=== PATIENT | female | born 1970 | race Two or more races ===

== ENCOUNTER 2018-07-08 12:54 | Emergency (ER) | payer MEDICAID ==
[~2018-07-08] VITALS: Ht 152.4 cm; Wt 63.5 kg
--- NOTE | 2018-07-08 13:38 | Emergency Room Report ---
History of Present Illness General Chief Complaint: Headache Source: Patient Present Illness HPI 48-year-old female presents to the emergency department complaining of 9 out of 10 in severity tenderness to a palpable lump posterior scalp progressive x 1 month, nasal congestion, and pressure in the ears Left> right. denies fevers, chills, N,V, or dizziness. pt. denies hx of migraines. pt. denies paresthesias, weakness in the extremities, difficulty with speech or ability to walk, talk or swallow. patient denies neck pain/stiffness. Aggravating or relieving factors Allergies: Coded Allergies: No Known Allergies (Unverified , 07/08/18) Patient History Past Medical History: see triage record Past Surgical History: none Pertinent Family History: none Reviewed Nursing Documentation: PMH: Agreed; PSxH: Agreed Nursing Documentation-PMH Past Medical History: No Stated History Review of Systems All Other Systems: negative except mentioned in HPI Physical Exam Vital Signs Date Time Temp Pulse Resp B/P (MAP) Pulse Ox O2 Delivery O2 Flow Rate FiO2 07/08/18 13:06 98.1 68 16 122/56 98 Room Air Medical Decision Making PA Attestation Dr. Mendez is my supervising physician whom pt. management has been discussed with. Diagnostic Impression: Primary Impression: Sebaceous cyst Additional Impressions: Inflamed sebaceous cyst Head ache Qualified Codes: R51 - Headache Sinus congestion Last Vital Signs Date Time Temp Pulse Resp B/P (MAP) Pulse Ox O2 Delivery O2 Flow Rate FiO2 07/08/18 13:06 98.1 68 16 122/56 98 Room Air Disposition: HOME, SELF-CARE Condition: Stable Patient Instructions: Cystoscopy, Care After, General Headache Without Cause, [id number] Additional Instructions: Take medications as directed. Follow up with a Primary Care Provider in 3-5 days, even if your symptoms have resolved. Will Require same-day outpatient surgery for removal. This is done at an outpatient clinic and is not an emergent procedure. Please follow up with a primary care outpatient clinic for definitive treatment of your symptoms. --Please review list of primary care clinics, if you do not already have a primary care provider Return sooner to ED if new symptoms occur, or current symptoms become worse. - Please note that this Emergency Department Report was dictated using [employer] implementation analyst technology software, occasionally this can lead to erroneous entry secondary to interpretation by the dictation equipment. Morena Cantu Jul 08, 2018 13:38
[2018-07-08] MEDS ORDERED: CEPHALEXIN500 MG ORAL (13:40)
[2018-07-08] MEDS ORDERED: MUPIROCIN22 GM TOPIC (13:40)
[2018-07-08] MEDS ORDERED: EXCEDRIN MIGRA1 EACH PO (13:40)
[2018-07-08] MEDS ORDERED: ZYRTEC-D TABLE1 EACH ORAL (13:40)
[2018-07-08 15:03] VITALS: BP 122/56
[2018-07-08 15:04] VITALS: BP 122/56
== END 2018-07-08 14:20 | disposition home or self-care (01) ==
LOC: EMR 13:35
DX: L72.3 Sebaceous cyst (principal); R51 Headache; R09.81 Nasal congestion
CPT/HCPCS: 99283

== ENCOUNTER 2018-07-15 23:36 | Emergency (ER) | payer MEDICAID ==
[~2018-07-15] VITALS: Ht 157.5 cm; Wt 68.0 kg
[~2018-07-15 23:36] MED LIST: CEPHALEXIN500 MG ORAL; EXCEDRIN MIGRA1 EACH PO; MUPIROCIN22 GM TOPIC; ZYRTEC-D TABLE1 EACH ORAL
[2018-07-15] MEDS ORDERED: NKM (23:47)
--- NOTE | 2018-07-15 23:55 | NUR ---
ED Nurse Note: Patient presents with complaints of abdominal pain 10/10.
--- NOTE | 2018-07-15 23:56 | Emergency Room Report ---
History of Present Illness General Chief Complaint: Abdominal Pain Source: Patient Present Illness HPI This is a 48-year-old female with no significant past medical history. She presents with chief complaint abdominal pain with nausea vomiting diarrhea. She has more diarrhea than vomiting. Pain is mostly epigastric and right upper quadrant area. Radiating to the right lower quadrant. Vomiting is nonbloody nonbilious. Diarrhea is watery. Anus 9 out of 10. Nothing made it better. Palpation made it worse. Eating makes it worse. Onset today. Allergies: Coded Allergies: No Known Allergies (Unverified , 07/08/18) Patient History Past Medical History: see triage record, old chart reviewed Past Surgical History: other Pertinent Family History: none Social History: Denies: smoking Last Menstrual Period: n/a Now: No Immunizations: other Reviewed Nursing Documentation: PMH: Agreed; PSxH: Agreed Nursing Documentation-PMH Past Medical History: No Stated History Review of Systems Eye: Denies: eye pain, blurred vision ENT: Denies: ear pain, nose congestion, throat swelling Respiratory: Denies: cough, shortness of breath Cardiovascular: Denies: chest pain, palpitations Gastrointestinal: Reports: abdominal pain, diarrhea, nausea, vomiting Musculoskeletal: Denies: back pain, joint pain Skin: Denies: rash Neurological: Denies: headache, numbness Endocrine: Denies: increased thirst, increased urine Hematologic/Lymphatic: Denies: easy bruising All Other Systems: negative except mentioned in HPI Physical Exam Vital Signs Date Time Temp Pulse Resp B/P (MAP) Pulse Ox O2 Delivery O2 Flow Rate FiO2 07/15/18 23:43 97.9 77 18 122/75 99 Room Air vitals normal Sp02 EP Interpretation: reviewed, normal General Appearance: well appearing, no apparent distress, alert Head: normocephalic, atraumatic Eyes: bilateral eye PERRL, bilateral eye EOMI ENT: hearing grossly normal, normal pharynx Neck: full range of motion, supple, no meningismus Respiratory: chest non-tender, lungs clear, normal breath sounds Cardiovascular #1: regular rate, rhythm, no murmur Gastrointestinal: normal bowel sounds, no mass, no organomegaly, no bruit, non- distended, tenderness - Right upper quadrant Musculoskeletal: back normal, gait/station normal, normal range of motion Psychiatric: mood/affect normal Skin: warm/dry Medical Decision Making Diagnostic Impression: Primary Impression: Cholelithiases Qualified Codes: K80.20 - Calculus of gallbladder without cholecystitis without obstruction ER Course Patient with abdominal pain with gallstone on the CT scan. Pain is controlled now. Liver enzyme and bilirubin normal. We'll discharge home. Lab Results Impression labs unremarkable CT/MRI/US Diagnostic Results CT/MRI/US Diagnostic Results : Imaging Test Ordered: CT abdomen and pelvis Impression Read by radiologist. Gallstones. One of the stone is in the gallbladder neck. Last Vital Signs Date Time Temp Pulse Resp B/P (MAP) Pulse Ox O2 Delivery O2 Flow Rate FiO2 07/15/18 23:43 97.9 77 18 122/75 99 Room Air Status: improved Disposition: HOME, SELF-CARE Condition: Stable Scripts Ibuprofen* (MOTRIN*) 600 Mg Tablet 600 MG ORAL THREE TIMES A DAY, #30 TAB 0 Refills Prov: David Sheffield MD 07/16/18 Hydrocodone/Acetaminophen 5-325* (HYDROCODONE/ACETAMINOPHEN 5-325*) 1 Each Tablet 1 TAB ORAL Q6H PRN for For Pain, #20 TAB 0 Refills Prov: David Sheffield MD 07/16/18 Additional Instructions: Follow-up with your doctor within a week. You will need a referral to see a surgeon. Return if worse. David Sheffield MD Jul 15, 2018 23:56
[2018-07-16] MEDS ORDERED: Morphine Sulfate 4mg/ml Inj (IV USE ONLY) IVP ONE
[2018-07-16 00:11] VITALS: BP 112/67
[2018-07-16 00:17] LABS: APPEARANCE,URINE CLEAR; BILIRUBIN, URINE NEGATIVE (NEGATIVE); COLOR,URINE PALE YELLOW; GLUCOSE, URINE (UA) NEGATIVE (NEGATIVE); KETONES,URINE NEGATIVE (NEGATIVE); LEUKOCYTE ESTERASE ,URINE NEGATIVE (NEGATIVE); NITRITE,URINE NEGATIVE (NEGATIVE); PH,URINE 5 (4.5-8.0); PROTEIN,URINE NEGATIVE (NEGATIVE); UROBILINOGEN,URINE NORMAL MG/DL (0.0-1.0)
[2018-07-16 00:25] LABS: BASOPHILS % (AUTO) 0.8 % (0.0-2.0); EOSINOPHILS % (AUTO) 1.1 % (0.0-3.0); HEMATOCRIT 36.6 % (37.0-47.0); HEMOGLOBIN 12.6 G/DL (12.0-16.0); LYMPHOCYTES % (AUTO) 25.2 % (20.0-45.0); MEAN CORPUSCULAR VOLUME 94 FL (80-99); MONOCYTES % (AUTO) 4.9 % (1.0-10.0); NEUTROPHILS % (AUTO) 67.9 % (45.0-75.0); PLATELET COUNT 275 K/UL (150-450); RED CELL DISTRIBUTION WIDTH 11.8 % (11.6-14.8); WHITE BLOOD COUNT 12.6 K/UL (4.8-10.8)
[2018-07-16 00:31] LABS: ANION GAP 6 mmol/L (5-15); BLOOD UREA NITROGEN 16 mg/dL (7-18); CARBON DIOXIDE 28 MMOL/L (21-32); CHLORIDE 100 MMOL/L (98-107); CREATININE 0.7 MG/DL (0.55-1.30); POTASSIUM 3.5 MMOL/L (3.5-5.1); SODIUM 134 MMOL/L (136-145)
[2018-07-16 00:35] LABS: ALANINE AMINOTRANSFERASE 37 U/L (12-78); ALBUMIN 3.9 G/DL (3.4-5.0); ALBUMIN/GLOBULIN RATIO 0.9 (1.0-2.7); ALKALINE PHOSPHATASE 119 U/L (46-116); ASPARTATE AMINO TRANSFERASE 25 U/L (15-37); BILIRUBIN,TOTAL 0.3 MG/DL (0.2-1.0)
--- NOTE | 2018-07-16 00:53 | NUR ---
ED Nurse Note: Patient tolerated PO pain medication well.
[2018-07-16] MEDS ORDERED: IBUPROFEN600 MG ORAL (01:37)
[2018-07-16] MEDS ORDERED: HYDROCODON-ACE1 EA15 ORAL (01:37)
--- NOTE | 2018-07-16 01:53 | NUR ---
ED Nurse Note: Patietn discharrged in stable condition, patient verbalized understanding of discharge instructions patient departed with family and left with all belongings
[2018-07-16 01:56] VITALS: BP 110/61
--- NOTE | 2018-07-16 10:15 | Diagnostic Imaging Report ---
Indication: Abdominal pain for 3 days Technique: Spiral acquisitions obtained through the abdomen and pelvis. No oral contrast utilized, per emergency room physician request No IV contrast utilized, per referring physician request.. Multiplanar reconstructions were generated. Total dose length product 684.05 mGycm. CTDIvol(s) 13.68 mGy. Dose reduction achieved using automated exposure control Comparison: None Findings: The appendix is normal. There are scattered colonic diverticula. There is a tiny fat-containing umbilical hernia. No small bowel distention. No free or loculated intraperitoneal gas or fluid is evident. The distal esophagus, stomach, duodenum are unremarkable. Lack of IV contrast limits assessment of solid organs. The liver is grossly unremarkable. The gallbladder is filled with gallstones. The bile ducts are normal. The pancreas, spleen, adrenals, kidneys are all unremarkable. No retroperitoneal or mesenteric mass or adenopathy. No pelvic mass or adenopathy. Uterus and adnexal structures are unremarkable. The lungs demonstrate basilar dependent posterior atelectatic changes. Calcified granulomata are seen in the left lower lobe left hilar node calcifications are noted. The bones are unremarkable. Impression: No acute process Colonic diverticulosis Cholelithiasis Evidence of old left and left pulmonary hilar lung granulomatous disease thank you This agrees with the preliminary interpretation provided overnight by [facility] teleradiology service. The CT scanner at [facility] is accredited by the [employer] and the scans are performed using protocols designed to limit radiation exposure to as low as reasonably achievable to attain images of sufficient resolution adequate for diagnostic evaluation.
== END 2018-07-16 01:53 | disposition home or self-care (01) ==
LOC: EMR 23:59
DX: K80.20 Calculus of gallbladder without cholecystitis without obstruction (principal)
CPT/HCPCS: 36415; 74176; 80053; 81003; 81025; 83690; 85025; 96361; 96374; 96375; 99284; J2270; J2405